=== PATIENT | female | born 1985 | race Two or more races ===

== ENCOUNTER 2020-09-03 06:30 | Day surgery (SDC) | payer OTHER | END 2020-09-03 20:26 | disposition home or self-care (01) | LOC: CIR.AMB 06:30 | PROVIDERS: ATTEND Obstetrics & Gynecology | DX: N70.11 Chronic salpingitis (principal); N73.5 Female pelvic peritonitis, unspecified ==

== ENCOUNTER 2021-09-24 14:49 | Inpatient (IN) | payer OTHER ==
[~2021-09-24] VITALS: Ht 149.9 cm; Wt 58.1 kg
--- NOTE | 2021-09-24 15:17 | NUR ---
SE RECIBE PTE ALERTA. ORIENTADA EN MIGUEL KIRA ESFERAS LA MISMA REFIERE DOLOR ABDOMEN PELVICO LADO DERECHO DESDE LA 1:00AM.
--- NOTE | 2021-09-24 17:43 | NUR ---
SE ORIENTA A PACIENTE SOBRE TRATAMIENTO ORDENADO POR DR. VILLALOBOS, LA MISMA VERBALIZA ENTENDER. SE COLECTAN MUESTRAS DE LABORATORIOS, SE COLOCA VENOPUNCION PATENTE, JJ DE ERITEMA Y EDEMA Y SE CONECTA TERAPAI DE IVF'S. PENDIENTE RESULTADOS DE LABORATORIOS. SE MANTIENE PACIENTE EN OBSERVACION.
== END 2021-09-25 13:26 | disposition home or self-care (01) | DRG 343 ==
LOC: ER 14:49 → SEC-K 22:56 → SURG 09-25 08:30
PROVIDERS: ADMIT Surgery; ATTEND Surgery
PROC: 0DTJ4ZZ Resection of Appendix, Percutaneous Endoscopic Approach (ICD-10-PCS; principal; 2021-09-24)
PROC: BW2110Z Computerized Tomography (CT Scan) of Abdomen and Pelvis using Low Osmolar Contrast, Unenhanced and Enhanced (ICD-10-PCS; 2021-09-24)
DX: K35.80 Unspecified acute appendicitis (principal)